=== PATIENT | male | born 1980 | race Caucasian/White ===

== ENCOUNTER 2024-03-22 10:05 | Outpatient (CLI) | payer OTHER, SELFPAY ==
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
== END 2024-03-22 10:06 | disposition home or self-care (01) ==
LOC: ANHNEURO 10:06
PROVIDERS: Visit Provider Internal Medicine
DX: G62.9 Polyneuropathy, unspecified (principal)
CPT/HCPCS: 95886; 95910